=== PATIENT | male | born 1955 | race Caucasian/White ===

== ENCOUNTER 2022-11-09 07:30 | Observation (INO) ==
[2022-11-09] MEDS ORDERED: LR 1,000 ML IV 1,000 ML IV ONE ×2 (12:21→15:40)
[2022-11-09] MEDS ORDERED: REGLAN INJ 10 MG VIAL IVP PRN (12:28)
[2022-11-09] MEDS ORDERED: BENADRYL INJ 50 MG VIAL IVP PRN (12:28)
[2022-11-09] MEDS ORDERED: BARHEMSYS INJ IVP PRN (12:28)
[2022-11-09] MEDS ORDERED: ZOFRAN INJ 4 MG VIAL IVP PRN ×2 (12:28→16:40)
[2022-11-09] MEDS ORDERED: DIPRIVAN VIAL 20 ML ONE (12:39)
[2022-11-09] MEDS ORDERED: VERSED ONE (12:40)
[2022-11-09] MEDS ORDERED: FENTANYL VIAL INJ 100 mcg ONE ×2 (12:41→15:25)
[2022-11-09 12:57] VITALS: BMI 25.8
[2022-11-09] MEDS ORDERED: MARCAINE 0.25% INJ ONE (13:19)
[2022-11-09] MEDS ORDERED: SUPRANE ONE (14:00)
[2022-11-09] MEDS ORDERED: MAGNESIUM SULFATE 50% INJ VIAL ONE (14:16)
[2022-11-09] MEDS ORDERED: DECADRON INJ ONE (14:17)
[2022-11-09] MEDS ORDERED: ZOFRAN INJ 4 MG VIAL ONE (14:17)
[2022-11-09] MEDS ORDERED: PEPCID 20 MG VIAL ONE (14:17)
[2022-11-09] MEDS ORDERED: PHENERGAN INJ 25 MG IM ONE (14:17)
[2022-11-09] MEDS ORDERED: NEO-SYNEPHRINE INJ ONE (14:18)
[2022-11-09] MEDS ORDERED: ROBINUL ONE (14:33)
[2022-11-09] MEDS ORDERED: NS 100 ML IV 100 ML ONE (14:53)
[2022-11-09] MEDS ORDERED: ANCEF VIAL 1 GRAM ONE (14:53)
[2022-11-09] MEDS ORDERED: BRIDION ONE (16:04)
[2022-11-09] MEDS: DILAUDID INJ IVP PRN ×5 (16:33→17:52)
[2022-11-09] MEDS ORDERED: DILAUDID INJ ONE ×2 (16:33→16:40)
[2022-11-09] MEDS ORDERED: TYLENOL 325 MG TAB PO PRN (16:40)
[2022-11-09] MEDS ORDERED: PERCOCET TAB 5/325 MG PO PRN (16:40)
[2022-11-09] MEDS ORDERED: NEURONTIN CAP 300 MG ONE (18:12)
[2022-11-09] MEDS ORDERED: DILAUDID INJ IVP ONE (18:45)
[2022-11-09 19:55] LABS: BILIRUBIN,URINE NEGATIVE (NEGATIVE); BLOOD/HEMOGLOBIN,URINE NEGATIVE (NEGATIVE); GLUCOSE, URINE NEGATIVE (NEGATIVE); KETONES,URINE 2+ (NEGATIVE); LEUKOCYTE ESTERASE ,URINE NEGATIVE (NEGATIVE); NITRITES,URINE NEGATIVE (NEGATIVE); PROTEIN,URINE NEGATIVE (NEGATIVE); UROBILINOGEN,URINE NORMAL (NORMAL)
[2022-11-09 20:04] LABS: APPEARANCE,URINE CLEAR (CLEAR); COLOR,URINE YELLOW (YELLOW)
[2022-11-09] MEDS ORDERED: COLACE CAP 100 MG PO SCH (21:00)
[2022-11-09] MEDS ORDERED: NEURONTIN CAP 300 MG PO SCH (21:00)
[2022-11-09] MEDS: NEURONTIN TAB 600 MG PO SCH (22:37)
[2022-11-09] MEDS: NS 1,000 ML IV 1,000 ML IV SCH (22:38)
[2022-11-10] MEDS: DILAUDID INJ IVP PRN (01:19)
[2022-11-10] MEDS: NEURONTIN TAB 600 MG PO SCH (05:15)
[2022-11-10] MEDS: NS 1,000 ML IV 1,000 ML IV SCH (05:15)
[2022-11-10 06:40] LABS: BLOOD UREA NITROGEN 14 mg/dL (7-18); CALCIUM 8.8 mg/dL (8.5-10.1); CARBON DIOXIDE 28.7 mmol/L (21-32); CHLORIDE 106 mmol/L (98-107); COR NA(FOR HYPERGLY) 142 mmol/L (136-145); CREATININE 0.82 mg/dL (0.70-1.30); SODIUM 141 mmol/L (136-145); eGFR NON BLACK RACES > 60 (>60)
[2022-11-10] MEDS ORDERED: LOVENOX INJ 40 MG SYR SC SCH (09:00)
[2022-11-10 12:27] VITALS: BP 141/74
== END 2022-11-10 13:05 | disposition home or self-care (01) ==
LOC: MED/SURG → EDSTATUS 12:00
PROVIDERS: ADMIT Obstetrics & Gynecology Obstetrics; ATTEND Obstetrics & Gynecology Obstetrics
PROC: APEXFIX (2022-11-09 13:15)
PROC: DEBRIDE (2022-11-09 13:15)
PROC: HARDREM (ICD-10-PCS; 2022-11-09 13:15)
DX: B96.29 Other Escherichia coli [E. coli] as the cause of diseases classified elsewhere; M24.572 Contracture, left ankle; T84.84XA Pain due to internal orthopedic prosthetic devices, implants and grafts, initial encounter; B95.61 Methicillin susceptible Staphylococcus aureus infection as the cause of diseases classified elsewhere; L97.429 Non-pressure chronic ulcer of left heel and midfoot with unspecified severity